=== PATIENT | female | born 1940 | race African-American/Black ===

== ENCOUNTER 2019-12-30 06:50 | Emergency (ER) | payer OTHER, MEDICARE ==
[~2019-12-30] VITALS: Ht 170.2 cm; Wt 90.0 kg
[2019-12-30 07:37] LABS: BASOPHILS % 0.4 % (0.0-2.0); EOSINOPHILS % 1.6 % (0.0-5.0); HEMATOCRIT. 39.7 % (36.0-48.0); HEMOGLOBIN. 13.1 g/dL (12.0-16.0); LYMPHOCYTES % 34.9 % (20.0-50.0); MEAN CORPUSCULAR HEMOGLOBIN 27.8 pg (28.0-32.0); MEAN CORPUSCULAR VOLUME 84.2 fL (81.0-99.0); MEAN PLATELET VOLUME 8.3 fl (7.4-10.4); MONOCYTES % 8.4 % (2.0-8.0); NEUTROPHILS % 54.7 % (40.0-76.0); PLATELET 279 x1000/uL (130-400); RED BLOOD CELL COUNT 4.71 mill/uL (4.2-5.4); RED CELL DISTRIBUTION WIDTH 13.6 % (11.6-14.6)
[2019-12-30 07:43] LABS: PROTHROMBIN TIME 11.1 sec (9.6-11.0)
[2019-12-30 07:44] LABS: CHLORIDE 111 mEq/L (98-107)
[2019-12-30 07:48] LABS: ETHANOL BLOOD < 10 mg/dL
[2019-12-30 07:51] LABS: LDL CHOLESTEROL 141 mg/dL (5-100)
[2019-12-30] MEDS ORDERED: ACETAMINOPHEN 500MG TABLET PO ONE (09:45)
[2019-12-30 09:50] LABS: CLARITY URINE TURBID (CLEAR); COLOR URINE YELLOW (YELLOW); KETONES URINE NEGATIVE (NEGATIVE); LEUKOCYTE ESTERASE URINE 1+ (NEGATIVE); NITRITE URINE NEGATIVE (NEGATIVE); OCCULT BLOOD URINE TRACE (NEGATIVE); PROTEIN URINE 2+ (NEGATIVE); SPECIFIC GRAVITY URINE 1.024 (1.005-1.030); UROBILINOGEN URINE 0.2 E.U./dL (0.2-1.0)
[2019-12-30] MEDS ORDERED: POTASSIUM CHLORIDE 20MEQ TABLET SR PO ONE (10:00)
[2019-12-30 10:22] LABS: *AMPHETAMINES SCREEN URINE NEGATIVE (NEGATIVE); *BARBITURATES SCREEN URINE NEGATIVE (NEGATIVE); *BENZODIAZEPINES SCREEN URINE NEGATIVE (NEGATIVE); *COCAINE SCREEN URINE NEGATIVE (NEGATIVE); CANNABINOID URINE SCREEN NEGATIVE (NEGATIVE); METHADONE URINE SCREEN NEGATIVE (NEGATIVE); OPIATES URINE SCREEN NEGATIVE (NEGATIVE); PHENCYCLIDINE URINE SCREEN NEGATIVE (NEGATIVE)
[2019-12-30] MEDS ORDERED: HYDRALAZINE 20MG/ML VIAL IV ONE (10:45)
[2019-12-30 14:00] VITALS: BP 127/58
== END 2019-12-30 13:01 | disposition short-term general hospital (02) ==
LOC: ER 06:50 → EDBEDREQ 09:15 → EDBEDREQTM 09:15 → CANBEDREQ 12:51 → ER 13:01
DX: R41.82 Altered mental status, unspecified (principal); E87.6 Hypokalemia
CPT/HCPCS: 36415; 70450; 71045; 80053; 80305; 80307; 80320; 80329; 81003; 82140; 82962; 83690; 83721; 83880; 84443; 84484; 85025; 85610; 86850; 86900; 86901; 93005; 96374; 99285; J0360; G0480